=== PATIENT | female | born 1995 | race Two or more races ===

== ENCOUNTER 2021-12-05 16:42 | Emergency (ER) | payer MEDICAID ==
[~2021-12-05] VITALS: Ht 154.9 cm; Wt 72.6 kg
[2021-12-05 21:27] VITALS: BP 122/88
[2021-12-05] MEDS ORDERED: IBUP800T27 PO (21:36)
== END 2021-12-05 22:17 | disposition home or self-care (01) ==
LOC: ER 16:47
DX: S93.402A Sprain of unspecified ligament of left ankle, initial encounter (principal); X50.1XXA Overexertion from prolonged static or awkward postures, initial encounter; Y93.01 Activity, walking, marching and hiking; Y92.89 Other specified places as the place of occurrence of the external cause; Y99.8 Other external cause status
CPT/HCPCS: 73610

== ENCOUNTER 2022-05-21 11:16 | Emergency (ER) | payer MEDICAID ==
[~2022-05-21] VITALS: Ht 154.9 cm; Wt 93.0 kg
[~2022-05-21 11:16] MED LIST: IBUP800T27 PO
[2022-05-21 12:45] LABS: Albumin 3.6 g/dL (3.4-5.0); Calcium 8.8 mg/dL (8.5-10.1); Potassium 3.6 mmol/L (3.5-5.1)
[2022-05-21 12:48] LABS: BUN/Creatinine Ratio 13.6; Bilirubin, Total 0.5 mg/dL (0.2-1.0); Total Protein 8.1 g/dL (6.4-8.2)
[2022-05-21 12:49] LABS: Basophils # (auto) 0.1 10 ^3/uL (0-0.2); Basophils % (auto) 0.5 % (0.0-2.0); Eosinophils # (auto) 0.1 10 ^3/uL (0-0.8); Eosinophils % (auto) 0.6 % (0.0-7.0); Hematocrit 43.7 % (36.0-46.0); Hemoglobin 14.1 g/dL (12.2-16.2); Lymphocytes % (auto) 17.1 % (10.0-50.0); Mean Corpuscular Hemoglobin 29.3 pg (28.0-32.0); Mean Corpuscular Hgb Conc. 32.2 g/dL (32.0-36.0); Mean Corpuscular Volume 90.8 fL (80.0-100.0); Monocytes # (auto) 0.5 10 ^3/uL (0-1.3); Monocytes % (auto) 4.4 % (0.0-12.0); Neutrophils # (auto) 9.2 10 ^3/uL (1.6-8.6); Neutrophils % (auto) 77.4 % (37.0-80.0); Red Blood Cells 4.82 10^6/uL (4.0-5.20); Red Cell Distribution Width 14.5 % (11.8-14.3); White Blood Cell 11.9 10^3/uL (4.4-10.8)
[2022-05-21 13:46] LABS: Urine Bacteria NONE SEEN /hpf (None Seen); Urine Blood TRACE /uL (Negative); Urine Specific Gravity 1.021 (1.001-1.035); Urine WBC 1 /hpf (0 - 5)
[2022-05-21] MEDS ORDERED: CEPH-322 PO (18:11)
[2022-05-21 18:20] VITALS: BP 106/63
== END 2022-05-21 18:24 | disposition home or self-care (01) ==
LOC: ER 11:16
DX: N39.0 Urinary tract infection, site not specified (principal); R74.8 Abnormal levels of other serum enzymes; Z32.02 Encounter for pregnancy test, result negative
CPT/HCPCS: 36415; 76705; 80053; 81001; 81025; 85025

== ENCOUNTER 2023-08-23 18:52 | Emergency (ER) | payer MEDICAID ==
[~2023-08-23] VITALS: Ht 154.9 cm; Wt 92.0 kg
[~2023-08-23 18:52] MED LIST changes: +CEPH250C PO; +IBUP-1456 PO; -IBUP800T27 PO
[2023-08-23 19:38] VITALS: BP 148/85; PULSE 116; RESP 16; TEMP 99.3; O2SAT 98
== END 2023-08-23 19:41 | disposition home or self-care (01) ==
LOC: ER 18:52
DX: L02.212 Cutaneous abscess of back [any part, except buttock and flank] (principal)
CPT/HCPCS: 10060

== ENCOUNTER 2023-08-28 16:32 | Emergency (ER) | payer MEDICAID ==
[~2023-08-28] VITALS: Ht 154.9 cm; Wt 89.9 kg
[2023-08-28 17:11] VITALS: BP 114/79; PULSE 102; RESP 16; TEMP 98.1; O2SAT 97
[2023-08-28] MEDS ORDERED: BACDST PO ×3 (17:24→17:26)
[2023-08-28] MEDS ORDERED: IBUP-1456 PO ×3 (17:25→17:26)
[2023-08-28] MEDS ORDERED: cefTRIAXone SOD 1,000 MG VL IM ONE (17:30)
[2023-08-28] MEDS ORDERED: LIDOCAINE 1% HCL (LOCAL ANESTH.) INJ 20ML MDV ONE (17:31)
[2023-08-28] MEDS ORDERED: LIDOCAINE 1% HCL (LOCAL ANESTH.) INJ 20ML MDV IJ ONE (17:45)
== END 2023-08-28 17:49 | disposition home or self-care (01) ==
LOC: ER 16:32
DX: L02.212 Cutaneous abscess of back [any part, except buttock and flank] (principal)
CPT/HCPCS: 10060; 87077; 87186; 87205; 96372; 99283; J0696; J2001